=== PATIENT | male | born 1970 | race American Indian/Alaskan Native ===

== ENCOUNTER 2018-11-07 08:26 | Emergency (ER) | payer OTHER ==
[2018-11-07 08:32] VITALS: BP 136/83
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
[2018-11-07] MEDS ORDERED: LIDOCAINE VISCOUS 2% PO ONE (09:44)
[2018-11-07] MEDS ORDERED: PEPCID PO ONE (09:44)
[2018-11-07] MEDS ORDERED: ZOFRAN ORAL LIQ PO ONE (09:44)
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
== END 2018-11-07 10:31 | disposition home or self-care (01) ==
LOC: ED 08:26
DX: M54.9 Dorsalgia, unspecified (principal); F17.200 Nicotine dependence, unspecified, uncomplicated; V89.2XXA Person injured in unspecified motor-vehicle accident, traffic, initial encounter; Y93.89 Activity, other specified; Y92.488 Other paved roadways as the place of occurrence of the external cause; Y99.8 Other external cause status
CPT/HCPCS: 72125; 72131; 99283; Q0162

== ENCOUNTER 2021-01-18 12:37 | Emergency (ER) | payer SELFPAY ==
[2021-01-18 13:44] VITALS: BP 165/106
--- NOTE | 2021-01-18 14:14 | Emergency Department Report ---
ED ENT HPI - General Chief complaint: Dental/Oral Stated complaint: TOOTHACHE SWELLING Time Seen by Provider: 01/18/21 13:59 Source: patient Mode of arrival: Ambulatory Limitations: No Limitations - History of Present Illness Initial comments: Patient is a 50-year-old male presents emergency room for presents emergency room with complaints of right lower dental pain that began 5 days ago. He states yesterday he began to have swelling to his right lower face. Patient states he has not seen a dentist in a couple years. He denies any fever, nausea, vomiting, diarrhea, difficulty swallowing, difficulty breathing. Patient denies any past medical history. He denies any daily medications. No allergies to medications. - Related Data Previous Rx's Medication Instructions Recorded Last Taken Type Cyclobenzaprine [Flexeril] 10 mg PO QHS PRN #20 tablet 11/07/18 Unknown Rx Ibuprofen [Motrin 800 MG tab] 800 mg PO Q8HR PRN #30 tablet 11/07/18 Unknown Rx Chlorhexidine Mouthwash [Peridex] 15 ml MM BID #1 bottle 01/18/21 Unknown Rx Clindamycin [Clindamycin CAP] 450 mg PO TID 7 Days #63 capsule 01/18/21 Unknown Rx Naproxen [EC-Naprosyn] 375 mg PO BID PRN #14 tablet. 01/18/21 Unknown Rx Allergies Allergy/AdvReac Type Severity Reaction Status Date / Time No Known Allergies Allergy Verified 01/18/21 13:44 ED Dental HPI - General Chief complaint: Dental/Oral Stated complaint: TOOTHACHE SWELLING Time Seen by Provider: 01/18/21 13:59 Source: patient Mode of arrival: Ambulatory Limitations: No Limitations - Related Data Previous Rx's Medication Instructions Recorded Last Taken Type Cyclobenzaprine [Flexeril] 10 mg PO QHS PRN #20 tablet 11/07/18 Unknown Rx Ibuprofen [Motrin 800 MG tab] 800 mg PO Q8HR PRN #30 tablet 11/07/18 Unknown Rx Chlorhexidine Mouthwash [Peridex] 15 ml MM BID #1 bottle 01/18/21 Unknown Rx Clindamycin [Clindamycin CAP] 450 mg PO TID 7 Days #63 capsule 01/18/21 Unknown Rx Naproxen [EC-Naprosyn] 375 mg PO BID PRN #14 tablet. 01/18/21 Unknown Rx Allergies Allergy/AdvReac Type Severity Reaction Status Date / Time No Known Allergies Allergy Verified 01/18/21 13:44 ED Review of Systems ROS: Stated complaint: TOOTHACHE SWELLING Other details as noted in HPI Comment: All other systems reviewed and negative ED Past Medical Hx - Social History Smoking Status: Current Some Day Smoker Substance Use Type: Alcohol - Medications Home Medications: Home Medications Medication Instructions Recorded Confirmed Last Taken Type Cyclobenzaprine [Flexeril] 10 mg PO QHS PRN #20 tablet 11/07/18 Unknown Rx Ibuprofen [Motrin 800 MG tab] 800 mg PO Q8HR PRN #30 tablet 11/07/18 Unknown Rx Chlorhexidine Mouthwash [Peridex] 15 ml MM BID #1 bottle 01/18/21 Unknown Rx Clindamycin [Clindamycin CAP] 450 mg PO TID 7 Days #63 capsule 01/18/21 Unknown Rx Naproxen [EC-Naprosyn] 375 mg PO BID PRN #14 tablet. 01/18/21 Unknown Rx ED Physical Exam - General Limitations: No Limitations General appearance: alert, in no apparent distress - Head Head exam: Present: atraumatic, normocephalic - Eye Eye exam: Present: normal appearance - ENT ENT exam: Present: mucous membranes moist, other (there is a dental carry present to the right lower molar, there is a 1 cm area of induration present inside the cracked tooth, there is moderate right lower facial edema, mild trismus, no tongue elevation, no muffled voice, no submandibular edema) - Respiratory Respiratory exam: Absent: respiratory distress, accessory muscle use - Neurological Exam Neurological exam: Present: alert, oriented X3 - Psychiatric Psychiatric exam: Present: normal affect, normal mood - Skin Skin exam: Present: warm, dry, intact ED Course Vital Signs 01/18/21 13:44 Temperature 98.6 F Pulse Rate 94 H Respiratory 18 Rate Blood Pressure 165/106 [Left] O2 Sat by Pulse 100 Oximetry ED Medical Decision Making - Medical Decision Making Patient is a 50-year-old male presents emergency room for presents emergency room with complaints of right lower dental pain that began 5 days ago. He states yesterday he began to have swelling to his right lower face. Patient states he has not seen a dentist in a couple years. He denies any fever, nausea, vomiting, diarrhea, difficulty swallowing, difficulty breathing. Patient denies any past medical history. He denies any daily medications. No allergies to medications. Vitals with elevated blood pressure, otherwise stable discussed the importance of primary care follow-up regarding elevation in blood pressure, discussed lifestyle modifications and keeping a blood pressure log, the up-to-date medical literature does not recommend emergently lowering asymptomatic elevated blood pressure. on exam: there is a dental carry present to the right lower molar, there is a 1 cm area of induration present inside the cracked tooth, there is moderate right lower facial edema, mild trismus, no tongue elevation, no muffled voice, no submandibular edema. Examination appears consistent with dental abscess, no signs of facial abscess or Ramsey's at this time. Given prescription for medication. Advised patient Please take medicatio n as prescribed. Follow-up with your dentist. given a list of dental clinics please call for an appointment. it is very important follow-up. Return to emergency room for any new or worse symptoms. Critical care attestation.: If time is entered above; I have spent that time in minutes in the direct care of this critically ill patient, excluding procedure time. ED Disposition Clinical Impression: Dental abscess, Dental caries, Dentalgia Disposition: TO HOME OR SELFCARE Is pt being admited?: No Does the pt Need Aspirin: No Condition: Stable Instructions: Dental Abscess Additional Instructions: Please take medication as prescribed. Follow-up with your dentist. given a list of dental clinics please call for an appointment. it is very important follow-up. Return to emergency room for any new or worse symptoms. Prescriptions: Clindamycin [Clindamycin CAP] 450 mg PO TID 7 Days #63 capsule Naproxen [EC-Naprosyn] 375 mg PO BID PRN #14 tablet.dr RIVERA Reason: pain Chlorhexidine Mouthwash [Peridex] 15 ml MM BID #1 bottle Referrals: a, dentist [Other] - 2-3 Days Time of Disposition: 14:13 Print Language: YAKUT
== END 2021-01-18 14:30 | disposition home or self-care (01) ==
LOC: ED 12:37
DX: K02.9 Dental caries, unspecified (principal); K04.7 Periapical abscess without sinus; K08.89 Other specified disorders of teeth and supporting structures; F17.200 Nicotine dependence, unspecified, uncomplicated; Z79.899 Other long term (current) drug therapy
CPT/HCPCS: 99281